=== PATIENT | male | born 1995 | race Caucasian/White ===

== ENCOUNTER 2019-10-21 02:58 | Emergency (ER) | payer SELFPAY ==
[~2019-10-21] VITALS: Ht 175.3 cm; Wt 90.0 kg
[2019-10-21 03:13] VITALS: BP 158/102
[2019-10-21] MEDS ORDERED: PRED20TA PO (03:29)
[2019-10-21] MEDS ORDERED: CLIN300C8 PO (03:29)
[2019-10-21] MEDS ORDERED: CLINDAMYCIN HCL 150 MG CAPSULE PO ONE (03:30)
[2019-10-21] MEDS ORDERED: DEXAMETHASONE 4 MG TABLET PO ONE (03:30)
--- NOTE | 2019-10-21 03:30 | PHYS DOC ---
Past History Past Medical History: No Pertinent History Past Surgical History: No Surgical History Smoking: Cigarettes Alcohol Use: Occasionally Drug Use: Marijuana, Methamphetamine General Adult EDM: Chief Complaint: SKIN RASH/ABSCESS HPI: HPI: 24-year-old male presents with report of pruritic rash to bilateral lower extremities above ankles x2 to 3 days. Now with increased redness and swelling to left ankle. Denies any fever or chills. Denies trauma. Patient reports he has been itching at the wounds. Denies past medical history of diabetes or other immune compromised condition. Review of Systems: Review of Systems: Constitutional: Denies fever or chills Musculoskeletal: Denies back pain; reports left ankle pain Integument: Reports pruritic rash to bilateral lower extremities and redness to left lateral ankle Neurologic: Denies headache, focal weakness or sensory changes Complete systems were reviewed and found to be within normal limits, except as documented in this note. Allergies: Allergies: Allergies Coded Allergies Type Severity Reaction Last Updated Verified No Known Drug Allergies 01/06/16 No Physical Exam: PE: Constitutional: Well developed, well nourished, no acute distress, non-toxic appearance HENT: Normocephalic, atraumatic Eyes: Conjunctiva normal, no discharge Neck: Normal range of motion, supple Cardiovascular: Bilateral posterior tibialis and dorsalis pedis pulses +2, cap refill less than 2 seconds Lungs & Thorax: No respiratory distress, equal chest rise and fall Skin: Warm, dry, scattered healing raised lesions to bilateral lower extremities above ankles, self excoriations noted, left lateral ankle erythema which is tender to palpation noted. Extremities: No tenderness, ROM intact, no edema Neurologic: Alert and oriented X 3, no focal deficits noted Psychologic: Affect normal, judgment normal Current Patient Data: Vital Signs: Vital Signs Date Time Temp Pulse Resp B/P (MAP) Pulse Ox O2 Delivery O2 Flow Rate FiO2 10/21/19 03:13 98.3 94 20 158/102 (120) 98 Room Air EKG: EKG: [] Radiology/Procedures: Radiology/Procedures: [] Course & Med Decision Making: Course & Med Decision Making Patient presents with HPI and physical exam concerning for chigger bites with left lateral ankle cellulitis. Patient immune competent. Afebrile. Symptomatic treatment provided with oral steroid. Empiric antibiotic initiated with clindamycin. Patient stable for discharge with outpatient follow-up with PCP. Discussed findings and plan with patient, who acknowledges understanding and agreement. Melba Disclaimer: Melba Disclaimer: This electronic medical record was generated, in whole or in part, using a voice recognition dictation system. Departure Departure: Impression: Primary Impression: Cellulitis Qualified Codes: L03.116 - Cellulitis of left lower limb Additional Impression: Chigger bites Disposition: HOME/RESIDENCE PRIOR TO ADM Condition: STABLE Referrals: PCP,NO (PCP) Patient Instructions: Cellulitis, [id number], Insect Bite, [id number] Additional Instructions: Use over the counter Benadryl and Calamine lotion to control itching. Please take all antibiotic for full course. Scripts Clindamycin Hcl (CLINDAMYCIN HCL) 300 Mg Capsule 1 CAP PO TID for infection for 7 Days, #21 CAP Prov: ALICJA MILLS DO 10/21/19 Prednisone (PREDNISONE) 20 Mg Tablet 2 TAB PO DAILY for Rash, #8 TAB Start this prescription tomorrow, Thursday10/22/19 Prov: ALICJA MILLS DO 10/21/19 Justification of Admission: Justification of Admission: Justification of Admission Dx: N/A ALICJA MILLS DO Oct 21, 2019 03:29
== END 2019-10-21 03:39 | disposition home or self-care (01) ==
LOC: ER 02:58
DX: L03.116 Cellulitis of left lower limb (principal); B88.0 Other acariasis; L53.9 Erythematous condition, unspecified; R60.0 Localized edema; R21 Rash and other nonspecific skin eruption; F17.210 Nicotine dependence, cigarettes, uncomplicated; F12.90 Cannabis use, unspecified, uncomplicated; F19.90 Other psychoactive substance use, unspecified, uncomplicated
CPT/HCPCS: 99283; J8540